=== PATIENT | female | born 1965 | race Caucasian/White ===

== ENCOUNTER 2017-09-13 14:37 | Emergency (ER) | payer OTHER ==
[~2017-09-13] VITALS: Ht 165.1 cm; Wt 85.5 kg
[~2017-09-13 14:37] MED LIST: ACET500C5 PO; AZIT250T94 PO; ONDA8TAB14 PO
[2017-09-13 14:42] VITALS: Ht 165.1 cm; Wt 85.5 kg
[2017-09-13] MEDS ORDERED: KETOROLAC 60 MG INJ IM STA (16:11)
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
[2017-09-13] MEDS ORDERED: IBUP-1542 PO (16:52)
[2017-09-13] MEDS ORDERED: NPH10OT RIGHT EAR (16:52)
[2017-09-13] MEDS ORDERED: MECL12.574 PO (16:52)
== END 2017-09-13 17:04 | disposition home or self-care (01) ==
LOC: FTE 14:37
DX: H60.93 Unspecified otitis externa, bilateral (principal)
CPT/HCPCS: 96372; J1885; Z7502